=== PATIENT | male | born 1975 | race Asian ===

== ENCOUNTER 2024-09-03 19:52 | Emergency (ER) | payer OTHER, SELFPAY ==
[2024-09-03 19:55] VITALS: BP 114/72
[2024-09-03 20:16] LABS: Urine Albumin 2+ (Neg - Trace); Urine Bilirubin Negative (Negative); Urine Character Slightly Cloudy (Clear); Urine Color Yellow; Urine Glucose Negative (Negative); Urine Ketone 3+ (Negative); Urine Leukocyte 1+ (Negative); Urine Nitrite Negative (Negative); Urine Occult Blood 4+ (Negative); Urine Specific Gravity 1.015 (<1.030); Urine Urobilinogen Negative (Neg - 1+); Urine pH 6.5 (5.0-9.0)
[2024-09-03 20:17] LABS: % Basophils 0.2 % (0-2); % Eosinophils 0.5 % (0-6); % Immature Granulocytes 0.3 % (0-0.5); % Lymphocytes 9.5 % (20.5-51.1); % Monocytes 3.9 % (1.7-9.3); % Neutrophils 85.6 % (42.2-75.2); Absolute Eosinophils 0.1 10^3/uL (0-0.7); Absolute Lymphocytes 1.2 10^3/uL (1.2-3.4); Absolute Monocytes 0.5 10^3/uL (0.1-0.6); Hemoglobin 12.5 g/dL (13.0-18.0); Mean Corp Hgb Conc. 33.8 g/dL (33.0-37.0); Mean Corpuscular Hgb 30.7 pg (27.0-31.0); Mean Corpuscular Volume 90.9 fL (80.0-94.0); Mean Platelet Volume 10.7 fL (7.4-10.4); Nucleated Red Blood Cells % 0 % (-); Platelet Count 238 10^3/uL (130-400); Red Blood Cell Count 4.07 10^6/uL (4.70-6.10); Red Cell Dist. Width 11.7 % (11.5-14.5); White Blood Cell Count 12.9 10^3/uL (4.8-10.8)
[2024-09-03 20:23] LABS: Urine Squamous Cell >30 /LPF (Few)
[2024-09-03 20:24] LABS: Urine Bacteria Few (Negative); Urine Mucus Many; Urine Red Blood Cell 80-90 /HPF (0-2)
[2024-09-03 20:32] LABS: ALT (SGPT) 31 U/L (0-50); AST (SGOT) 29 U/L (17-59); Albumin 4.5 g/dl (3.5-5.0); Alkaline Phosphatase 89 U/L (38-126); Blood Urea Nitrogen 18 mg/dl (9-20); Calcium 9.9 mg/dl (8.4-10.2); Carbon Dioxide 24 mmol/L (22-30); Chloride 105 mmol/L (98-107); Glucose 114 mg/dl (70-99); Lipase 171 U/L (23-300); Potassium 4.1 mmol/L (3.5-5.1); Sodium 138 mmol/L (135-145); Total Bilirubin 1.2 mg/dl (0.2-1.3); Total Protein 7.4 g/dl (6.3-8.2); eGFR > 60.00
[2024-09-03 21:43] VITALS: BP 118/74
[2024-09-03 21:45] VITALS: BMI 23.9
[2024-09-03 22:00] VITALS: BP 119/76
[2024-09-03 23:00] VITALS: BP 127/73
[2024-09-03] MEDS: TORADOL 15 MG IV (23:00)
[2024-09-03] MEDS: FLOMAX 0.4 MG PO (23:14)
--- NOTE | 2024-09-03 23:15 | ED.GENMED ---
History of Present Illness
General
Chief Complaint: Flank Pain
Source: patient and spouse
Exam Limitations: none
Time Seen by Provider: 09/03/24 21:33
Nursing documentation reviewed up to this point in time: agreed with
History of Present Illness
History of Present Illness:
Patient is a 49-year-old male presenting to the emergency department via EMS with acute onset right flank pain. Symptoms started while he was driving home from work around 5:30 PM. He describes a sharp, stabbing pain in his right mid back. He
also reports mild dysuria and presser sensation. Pain was constant and associated with nausea and dry heaves. Patient denies any known fever or chills. Patient denies any abdominal pain, anorexia. Patient denies any chest pain or shortness of
breath. He does report history of kidney stones many years ago.
Patient was given Toradol and IV fluids in EMS. Symptoms much improved by arrival to ED.
Review of Systems
Review of Systems
Allergies reviewed?: Yes
All Other Systems: ROS reviewed and negative except as documented in HPI and ROS
Phy Exam
Physical Exam
Physical Exam:
Vitals: Patient's vital signs are stable. Afebrile
General: Patient is well appearing, no acute distress. Nontoxic appearing
Skin: Warm and dry, no rashes or lesions
Head: Normocephalic, atraumatic
Eyes: Sclera nonicteric. EOMs intact. No nystagmus.
Throat: Protecting airway
Neck: Normal ROM, no cervical spine tenderness, no meningismus
Cardiac: Regular rate and rhythm, no murmurs.
Pulm: Normal respiratory effort, no wheezes, rales, rhonchi heard on exam. O2 saturation 100 on room air
Abdomen: Abdomen soft. No abdominal tenderness. No rebound tenderness or guarding. No CVA tenderness. No ecchymoses or rash of bilateral flank
Extremities: No evidence of cyanosis or edema. Palpable DP pulses bilateral
Neuro: AAOx3. Grossly intact.
Psychiatric: Normal affect.
Course
Orders/Labs/Results
Orders:
Orders
09/03/24 20:09
Complete Blood Count/With Diff Urgent
Comprehensive Metabolic Panel Urgent
Lipase Urgent
Urinalysis Reflex To Culture Urgent
Date Specimen was Collected: 09/03/24
Time Specimen was Collected: 20:01
Urine Microscopic Reflex Cult Urgent
Urine Culture Urgent
MANDO Source: U
Specimen Description:
Date Specimen was Collected: 09/03/24
Time Specimen was Collected: 20:01
09/03/24 21:47
Abdomen/Pelvis wo Contrast CT [CT Abd/pelvis Wo Iv Cont] Urgent
Comment:
Reason For Exam: R flank pain, hx kidney stones
0.9% Sodium Chloride 1000 ml [Nss] 1,000 ml IV BOLUS
09/03/24 22:57
Ketorolac [Toradol] 15 mg IV NOW STA
09/03/24 23:05
Tamsulosin [Flomax] 0.4 mg PO NOW STA
Abnormal Lab Results
09/03/24
20:09
WBC 12.9 H 10^3/uL
(4.8-10.8)
RBC 4.07 L 10^6/uL
(4.70-6.10)
Hgb 12.5 L g/dL
(13.0-18.0)
Hct 37.0 L %
(39.0-52.0)
MPV 10.7 H fL
(7.4-10.4)
Absolute Neuts (auto) 11.0 H 10^3/uL
(1.4-6.5)
Neutrophils % 85.6 H %
(42.2-75.2)
Lymphocytes % 9.5 L %
(20.5-51.1)
Glucose 114 H mg/dl
(70-99)
Urine Ketones 3+ A
(Negative)
Ur Occult Blood Reflex 4+ A
(Negative)
Leukocyte Esterase Rfl 1+ A
(Negative)
Urine RBC 80-90 A /HPF
(0-2)
Urine Bacteria (Reflex) Few A
(Negative)
Urine Albumin (Reflex) 2+ A
(Neg - Trace)
09/03/24 20:09
09/03/24 20:09
Vital Signs
Initial and Last Documented VS:
Initial Vital Signs
Temp Pulse Resp BP Pulse Ox
98.5 F 66 16 114/72 100
09/03/24 19:55 09/03/24 19:55 09/03/24 19:55 09/03/24 19:55 09/03/24 19:55
Last Documented Vital Signs
Temp Pulse Resp BP Pulse Ox
98.5 F 68 16 127/73 98
09/03/24 19:55 09/03/24 21:51 09/03/24 21:51 09/03/24 23:00 09/03/24 23:01
MDM/Problems Addressed
Differential Diagnosis Includes:
Not limited to: Kidney stone, cystitis, pyelonephritis, muscle strain, zoster, etc.
MDM/Problems Addressed:
49 year old male with acute onset right flank pain associated with nausea/vomiting mostly improved with toradol received in transport via EMS. No associated chest pain or shortness of breath. No fevers. Hx of kidney stones. Vitals and exam as above.
High clinical suspicion for renal colic. Will check labs, UA, and noncontrast CT abdomen/pelvis. Other differentials include pyelonephritis or muscle strain. No rash to suggest zoster. Patient otherwise comfortable at this time - he received IVF via
EMS.
Update: Labs show very mild leukocytosis which I favor to be reactive rather than infectious as urine does not appear infected, although it is contaminated. Urien culture was sent. No renal insufficiency or other abnormalities on chemistry. CT shows
2mm obstructing stone at right UVJ. Patient has reamined stable with pain well controlled. Ultimately - given size and location of stone feel that he is a good candidate for trial of stone passage at home. Will send rx for flomax, pain control, and
zofran. Advised NSAIDS. Patient given urology f/u. Close return precautions discussed.
Chronic conditions affecting care:
History of kidney stone
Acute Exacerbation and/or Progression of Chronic Illness:
Obstructing right ureteral calculus
*Radiology
Radiology exam reviewed: preliminary read by ED provider (Obstructing calculus right UVJ) and radiology read reviewed
*Pulse Oximetry
Patient hypoxic: no
*EKG
Interpreted by ED Provider?: NA
*Muck Miner Interpretation
Rate: Muck Miner- N/A
*Critical Care Note
Total Time (30-74mins, 75-104mins- exclusive of procedures): Not Applicable
ED Attending Note
-
Portions of this chart may have been created with voice recognition software.� Occasional wrong word or��sound alike� substitutions may have occurred due to the inherent limitations of voice recognition software.
Discharge Plan
Departure
Patient Disposition: Home (Routine Discharge)
Date of Disposition: 09/03/24
Time of Disposition: 23:05
Patient with high blood pressure during this ER visit?: No
Condition: Good
Covid-19: Not Applicable
Discharge Problem:
Calculus of ureterovesical junction (UVJ)
Instructions: Kidney Stones (DC), How to Strain Your Urine
Prescriptions:
New
oxycodone 5 mg tablet
5 mg PO Q8H PRN (Reason: Pain) Qty: 5 0RF
tamsulosin [Flomax] 0.4 mg capsule
0.4 mg PO DAILY Qty: 14 0RF
ondansetron 4 mg tablet,disintegrating
4 mg PO TIDPRN PRN (Reason: nausea/vomiting) Qty: 5 0RF
Referrals:
Todd Esparza MD [Active] - Call in 1-3 days for appt
Issa Malik MD [Family Provider] -
Activity Restrictions/Additional Instructions:
Return to the emergency department with any fevers/chills, significant weakness, intractable nausea/vomiting, severe abdominal or back pain, or any other concerns
-As discussed�your CT scan showed a 2 mm right-sided kidney stone.
-For pain management�you should take ibuprofen 600 mg every 6-8 hours as needed for pain. You can take Tylenol as needed as well. A prescription for oxycodone has been sent to your pharmacy for severe pain. This medication may cause drowsiness
and should not be taken prior to driving.
-You should take tamsulosin once a day until you passed stone.
-Stay well-hydrated. It is important strain your urine.
-Follow-up with urology for further evaluation/management and to ensure symptoms are improving. Contact information has been provided for you above.
Monitor your symptoms closely and return to the emergency department with any acute worsening/new symptoms or any signs of infection.
Interventions
Interventions:
*Risk Screen - Suicide Last Done: 09/03/24 21:47
*General Assessment Last Done: 09/03/24 21:47
*Neglect/Abuse Screening Last Done: 09/03/24 21:47
*ED- Fall Risk Assessment Last Done: 09/03/24 21:47
*ED COVID-19 Vaccine History Last Done: 09/03/24 21:47
*Nursing Disposition Last Done: 09/03/24 23:17
ZH-Yicvjj-Xkxvhilwco Assessment Last Done: 09/03/24 21:47
ED-Male Genitourinary Assessment Last Done: 09/03/24 21:47
Discharge Date and Time
Discharge Date/Time: 09/03/24 23:21
Print Language: TOGOLESE
== END 2024-09-03 23:21 | disposition home or self-care (01) ==
LOC: EMR 19:52
PROVIDERS: Emergency Medicine; EMERGENCY PHYSICIAN Emergency Medicine; FAMILY PHYSICIAN Family Medicine
DX: N20.1 Calculus of ureter (principal)
CPT/HCPCS: 99284; 96374; 74176; 80053; 81003; 81015; 83690; 85025; 87077; 87086